=== PATIENT | female | born 1965 | race Two or more races ===

== ENCOUNTER 2021-08-16 09:01 | Inpatient (IN) | payer OTHER ==
[~2021-08-16] VITALS: Ht 165.1 cm; Wt 75.1 kg
[2021-08-16] MEDS ORDERED: MORPHINE SULFATE 4 MG/ML SYR/VIAL IV ONE (09:30)
[2021-08-16] MEDS ORDERED: ONDANSETRON HCL 4 MG/2 ML VIAL IV ONE (09:30)
[2021-08-16 10:26] LABS: Albumin 3.2 g/dL (3.4-5.0); Anion Gap 9 (5-15); Blood Urea Nitrogen 63 mg/dL (7-18); Calcium 6.3 mg/dL (8.5-10.1); Carbon Dioxide 19 mmol/L (21-32); Chloride 106 mmol/L (98-107); Glucose 91 mg/dL (74-106); Magnesium 3.4 mg/dL (1.6-2.6); Sodium 134 mmol/L (136-145)
[2021-08-16 10:30] LABS: Alanine Aminotransferase 18 U/L (13-56); Alkaline Phosphatase 299 U/L (45-117); Aspartate Aminotransferase 22 U/L (15-37); Bilirubin, Total 0.3 mg/dL (0.2-1.0); GFR African American 6 mL/min; GFR Non-African American 5 mL/min; Total Protein 7.2 g/dL (6.4-8.2)
[2021-08-16 10:37] LABS: Basophils # (auto) 0 10 ^3/uL (0-0.2); Basophils % (auto) 0.6 % (0.0-2.0); Eosinophils # (auto) 0 10 ^3/uL (0-0.8); Eosinophils % (auto) 0.6 % (0.0-7.0); Hematocrit 31.2 % (36.0-46.0); Hemoglobin 10.5 g/dL (12.2-16.2); Lymphocytes # (auto) 0.6 10 ^3/uL (0.4-5.4); Lymphocytes % (auto) 8.3 % (10.0-50.0); Mean Corpuscular Hemoglobin 33.9 pg (28.0-32.0); Mean Corpuscular Hgb Conc. 33.6 g/dL (32.0-36.0); Mean Corpuscular Volume 100.9 fL (80.0-100.0); Monocytes # (auto) 0.5 10 ^3/uL (0-1.3); Monocytes % (auto) 7.4 % (0.0-12.0); Neutrophils # (auto) 5.9 10 ^3/uL (1.6-8.6); Neutrophils % (auto) 83.1 % (37.0-80.0); Red Cell Distribution Width 12.4 % (11.8-14.3); White Blood Cell 7.1 10^3/uL (4.4-10.8)
[2021-08-16 11:02] LABS: Potassium 6.8 mmol/L (3.5-5.1)
[2021-08-16] MEDS ORDERED: SODIUM BICARBONATE 8.4% INJ 50ML SYRINGE IV ONE (12:45)
[2021-08-16] MEDS ORDERED: DEXTROSE (50%) 50ML SYRG IV ONE (12:45)
[2021-08-16] MEDS ORDERED: InsuLIN REG 1unit/0.01ml Soln (100units/ml) IV ONE (12:45)
[2021-08-16] MEDS ORDERED: CALCIUM GLUC 1,000mg/50ml-NS 50 ML IV ONE (12:45)
[2021-08-16] MEDS ORDERED: FUROSEMIDE 20 MG/2 ML VIAL IV ONE (12:45)
[2021-08-16] MEDS ORDERED: SODIUM ZIRCONIUM CYCL 10 GM PAK PO ONE (12:45)
[2021-08-16] MEDS ORDERED: ALBUTEROL SULF 2.5 MG/0.5ML(0.5%) NEB SOLN NEB ONE (12:45)
[2021-08-16] MEDS ORDERED: NITROGLYCERIN 0.4 MG SL TAB SL PRN (16:45)
[2021-08-16] MEDS ORDERED: MORPHINE SULFATE INJECTION 2 MG/ML SYRG IV PRN (16:45)
[2021-08-16] MEDS: HYDROcodone-ACET 5/325MG TAB PO PRN (21:30)
[2021-08-16] MEDS: ENOXAPARIN SOD 80 MG/0.8ML SYRINGE SC SCH (21:37)
[2021-08-16] MEDS ORDERED: HEPARIN SODIUM (PORCINE) 5000 UNITS/ML 1ML VIAL IV SCH (22:00)
[2021-08-16] MEDS ORDERED: HEPARIN SODIUM (PORCINE) 5000 UNITS/ML 1ML VIAL SC SCH (22:00)
[2021-08-16 22:55] VITALS: BP 128/46
[2021-08-16 23:03] LABS: Basophils # (auto) 0 10 ^3/uL (0-0.2); Basophils % (auto) 0.6 % (0.0-2.0); Eosinophils # (auto) 0 10 ^3/uL (0-0.8); Eosinophils % (auto) 0.4 % (0.0-7.0); Hematocrit 29.6 % (36.0-46.0); Hemoglobin 10.1 g/dL (12.2-16.2); Lymphocytes # (auto) 0.5 10 ^3/uL (0.4-5.4); Lymphocytes % (auto) 9.6 % (10.0-50.0); Mean Corpuscular Hemoglobin 33.9 pg (28.0-32.0); Mean Corpuscular Hgb Conc. 34.1 g/dL (32.0-36.0); Mean Corpuscular Volume 99.6 fL (80.0-100.0); Monocytes # (auto) 0.3 10 ^3/uL (0-1.3); Monocytes % (auto) 6.1 % (0.0-12.0); Neutrophils # (auto) 4.7 10 ^3/uL (1.6-8.6); Neutrophils % (auto) 83.3 % (37.0-80.0); Red Blood Cells 2.97 10^6/uL (4.0-5.20); Red Cell Distribution Width 12.3 % (11.8-14.3); White Blood Cell 5.7 10^3/uL (4.4-10.8)
[2021-08-16 23:49] LABS: Calcium 6.4 mg/dL (8.5-10.1)
[2021-08-16 23:58] LABS: Potassium 7.3 mmol/L (3.5-5.1)
[2021-08-17] VITALS (8 sets, daily range): BP systolic 117–158; BP diastolic 58–91
[2021-08-17] MEDS ORDERED: SODIUM ZIRCONIUM CYCL 10 GM PAK PO ONE (00:15)
[2021-08-17] MEDS ORDERED: DEXTROSE (50%) 50ML SYRG IV ONE (00:15)
[2021-08-17] MEDS ORDERED: FUROSEMIDE 20 MG/2 ML VIAL IV ONE (00:15)
[2021-08-17] MEDS ORDERED: InsuLIN REG 1unit/0.01ml Soln (100units/ml) IV ONE (00:15)
[2021-08-17] MEDS ORDERED: SODIUM BICARBONATE 8.4% INJ 50ML SYRINGE IV ONE (00:15)
[2021-08-17] MEDS ORDERED: ALBUTEROL SULF 2.5 MG/0.5ML(0.5%) NEB SOLN NEB ONE (00:15)
[2021-08-17] MEDS ORDERED: CALCIUM GLUC 1,000mg/50ml-NS 50 ML IV ONE (00:15)
[2021-08-17] MEDS ORDERED: DEXTROSE 50% SYRINGE 50 ML IV ONE (01:24)
[2021-08-17] MEDS ORDERED: FUROSEMIDE 20 MG/2 ML VIAL ONE (01:24)
[2021-08-17] MEDS ORDERED: SODIUM BICARBONATE 8.4% INJ 50ML SYRINGE ONE (01:28)
[2021-08-17] MEDS: HYDROcodone-ACET 5/325MG TAB PO PRN (12:26)
[2021-08-17] MEDS ORDERED: HYDROmorphone HCL 2 MG/ML VL IV PRN (14:45)
[2021-08-17] MEDS ORDERED: SODIUM CHL 0.9% 1000 ML BAG XX ONE (16:45)
[2021-08-17] MEDS: ENOXAPARIN SOD 80 MG/0.8ML SYRINGE SC SCH (22:26)
[2021-08-18 05:00] VITALS: BP 148/70
[2021-08-18 05:38] LABS: Basophils # (auto) 0 10 ^3/uL (0-0.2); Basophils % (auto) 0.7 % (0.0-2.0); Eosinophils # (auto) 0.1 10 ^3/uL (0-0.8); Hemoglobin 10.1 g/dL (12.2-16.2); Lymphocytes # (auto) 0.6 10 ^3/uL (0.4-5.4); Lymphocytes % (auto) 11.4 % (10.0-50.0); Mean Corpuscular Hgb Conc. 33.6 g/dL (32.0-36.0); Mean Corpuscular Volume 101.4 fL (80.0-100.0); Monocytes # (auto) 0.5 10 ^3/uL (0-1.3); Monocytes % (auto) 8.4 % (0.0-12.0); Neutrophils # (auto) 4.3 10 ^3/uL (1.6-8.6); Neutrophils % (auto) 77.5 % (37.0-80.0); Nucleated Red Blood Cells % 0.2 %; Red Blood Cells 2.96 10^6/uL (4.0-5.20); Red Cell Distribution Width 12.3 % (11.8-14.3); White Blood Cell 5.6 10^3/uL (4.4-10.8)
[2021-08-18 09:00] VITALS: BP 131/65
[2021-08-18] MEDS ORDERED: ASPI1TAB20 PO (10:21)
[2021-08-18 11:42] VITALS: BP 128/68
[2021-08-18] MEDS: HYDROcodone-ACET 5/325MG TAB PO PRN ×2 (11:45→17:09)
[2021-08-18 13:00] VITALS: BP 154/74
== END 2021-08-18 17:30 | disposition home health service (06) | DRG 551 ==
LOC: EDBD 09:01 → ER 09:01 → TELE-WESTW 16:44
PROVIDERS: ADMIT Internal Medicine; ATTEND Internal Medicine
PROC: 5A1D70Z Performance of Urinary Filtration, Intermittent, Less than 6 Hours Per Day (ICD-10-PCS; principal; 2021-08-17)
DX: S32.111A Minimally displaced Zone I fracture of sacrum, initial encounter for closed fracture (principal); N18.6 End stage renal disease; S52.572A Other intraarticular fracture of lower end of left radius, initial encounter for closed fracture; S32.592A Other specified fracture of left pubis, initial encounter for closed fracture; I12.0 Hypertensive chronic kidney disease with stage 5 chronic kidney disease or end stage renal disease; E87.5 Hyperkalemia; W01.0XXA Fall on same level from slipping, tripping and stumbling without subsequent striking against object, initial encounter; E11.22 Type 2 diabetes mellitus with diabetic chronic kidney disease; Z20.822 Contact with and (suspected) exposure to COVID-19; D64.9 Anemia, unspecified; G62.9 Polyneuropathy, unspecified; E78.5 Hyperlipidemia, unspecified; Z99.2 Dependence on renal dialysis; Z88.8 Allergy status to other drugs, medicaments and biological substances; Y93.89 Activity, other specified; Y92.098 Other place in other non-institutional residence as the place of occurrence of the external cause; Y99.8 Other external cause status
CPT/HCPCS: 36415; 70450; 72192; 73090; 80048; 80053; 82962; 83036; 83735; 84132; 84484; 85025; 87081; 87340; 87426; 90935; 93005; 94640; 96365; 96375; 97163; 99291; G0378; J1815; J2405

== ENCOUNTER 2022-03-07 11:29 | Observation (INO) | payer OTHER ==
[~2022-03-07] VITALS: Ht 152.4 cm; Wt 65.4 kg
[~2022-03-07 11:29] MED LIST: ASPI1TAB20 PO
[2022-03-07 14:08] LABS: Basophils # (auto) 0.1 10 ^3/uL (0-0.2); Basophils % (auto) 1.1 % (0.0-2.0); Eosinophils # (auto) 0.1 10 ^3/uL (0-0.8); Eosinophils % (auto) 1.7 % (0.0-7.0); Hematocrit 34.7 % (36.0-46.0); Hemoglobin 11.6 g/dL (12.2-16.2); Lymphocytes % (auto) 21.7 % (10.0-50.0); Mean Corpuscular Hemoglobin 33.3 pg (28.0-32.0); Mean Corpuscular Hgb Conc. 33.5 g/dL (32.0-36.0); Mean Corpuscular Volume 99.3 fL (80.0-100.0); Monocytes # (auto) 0.3 10 ^3/uL (0-1.3); Monocytes % (auto) 7.3 % (0.0-12.0); Neutrophils # (auto) 3.1 10 ^3/uL (1.6-8.6); Neutrophils % (auto) 68.2 % (37.0-80.0); Nucleated Red Blood Cells % 0.1 %; Red Cell Distribution Width 15.7 % (11.8-14.3); White Blood Cell 4.5 10^3/uL (4.4-10.8)
[2022-03-07 14:22] LABS: INR 1.05 (0.9-1.15)
[2022-03-07 14:27] LABS: Albumin 3.8 g/dL (3.4-5.0); Calcium 6.1 mg/dL (8.5-10.1)
[2022-03-07 14:31] LABS: Bilirubin, Total 0.4 mg/dL (0.2-1.0)
[2022-03-07 14:33] LABS: BUN/Creatinine Ratio 8.2; Potassium 6.5 mmol/L (3.5-5.1)
[2022-03-07] MEDS ORDERED: InsuLIN REG 1unit/0.01ml Soln (100units/ml) IV ONE (15:45)
[2022-03-07] MEDS ORDERED: CALCIUM GLUC 1,000mg/50ml-NS 50 ML IV ONE (15:45)
[2022-03-07] MEDS ORDERED: SODIUM ZIRCONIUM CYCL 10 GM PAK PO ONE ×3 (15:45→23:45)
[2022-03-07] MEDS ORDERED: DEXTROSE (50%) 50ML SYRG IV ONE ×2 (15:45→17:45)
[2022-03-07] MEDS ORDERED: FUROSEMIDE 20 MG/2 ML VIAL IV ONE (15:45)
[2022-03-07] MEDS ORDERED: ALBUTEROL SULF 2.5 MG/0.5ML(0.5%) NEB SOLN NEB ONE ×2 (15:45→23:45)
[2022-03-07] MEDS ORDERED: DEXTROSE 50% SYRINGE 50 ML IV ONE (17:30)
[2022-03-07] MEDS ORDERED: LIDOCAINE 2%HCL (LOCAL ANESTH.) INJ 10ml MDV ONE (17:37)
[2022-03-07] MEDS ORDERED: fentaNYL CITRATE 100 MCG/2 ML VL ONE (17:40)
[2022-03-07] MEDS ORDERED: MIDAZOLAM HCL 2MG/2ML 2ml VIAL (1mg/ml) ONE (17:41)
[2022-03-07] MEDS ORDERED: hydrALAZINE HCL 20 MG/ML VL ONE (18:15)
[2022-03-07] MEDS ORDERED: hydrALAZINE HCL 20 MG/ML VL IV ONE (18:15)
[2022-03-07] MEDS ORDERED: HEPARIN SODIUM (PORCINE) 5000 UNITS/ML 1ML VIAL ONE (18:20)
[2022-03-07 19:58] LABS: Albumin 3.3 g/dL (3.4-5.0); Calcium 6.2 mg/dL (8.5-10.1)
[2022-03-07 20:01] LABS: BUN/Creatinine Ratio 8.1; Bilirubin, Total 0.4 mg/dL (0.2-1.0); Total Protein 6.9 g/dL (6.4-8.2)
[2022-03-07 21:05] LABS: Potassium 6.3 mmol/L (3.5-5.1)
[2022-03-07 23:04] LABS: Albumin 3.3 g/dL (3.4-5.0)
[2022-03-07 23:08] LABS: BUN/Creatinine Ratio 8.2; Bilirubin, Total 0.4 mg/dL (0.2-1.0); Total Protein 6.8 g/dL (6.4-8.2)
[2022-03-07 23:14] LABS: Potassium 6.8 mmol/L (3.5-5.1)
[2022-03-07] MEDS ORDERED: ALBUTEROL SULF 2.5 MG/0.5ML(0.5%) NEB SOLN ONE (23:38)
[2022-03-08] MEDS ORDERED: ACETAMINOPHEN 325 MG TAB PO ONE (00:15)
[2022-03-08] MEDS ORDERED: CALCIUM GLUC 1,000mg/50ml-NS 50 ML IV ONE (00:30)
[2022-03-08] MEDS ORDERED: MORPHINE SULFATE INJ 2 MG/ml SYRG IV PRN ×2 (00:30)
[2022-03-08] MEDS ORDERED: NITROGLYCERIN 0.4 MG SL TAB SL PRN (00:30)
[2022-03-08] MEDS ORDERED: SODIUM BICARBONATE 50ML VIAL 50 ML in D5W 5% 1,000 ML IV ONE (00:30)
[2022-03-08] MEDS ORDERED: ONDANSETRON HCL 4 MG/2 ML VIAL IV PRN (00:30)
[2022-03-08] MEDS ORDERED: SODIUM BICARBONATE 8.4 % INJ 50ML VIAL IV ONE (02:45)
[2022-03-08 05:17] VITALS: BP 125/42
[2022-03-08 08:05] LABS: Basophils # (auto) 0 10 ^3/uL (0-0.2); Basophils % (auto) 0.7 % (0.0-2.0); Eosinophils # (auto) 0 10 ^3/uL (0-0.8); Eosinophils % (auto) 0.4 % (0.0-7.0); Hematocrit 27.9 % (36.0-46.0); Hemoglobin 9.5 g/dL (12.2-16.2); Lymphocytes # (auto) 0.6 10 ^3/uL (0.4-5.4); Lymphocytes % (auto) 13.1 % (10.0-50.0); Mean Corpuscular Hemoglobin 33.7 pg (28.0-32.0); Mean Corpuscular Hgb Conc. 33.9 g/dL (32.0-36.0); Mean Corpuscular Volume 99.3 fL (80.0-100.0); Monocytes # (auto) 0.3 10 ^3/uL (0-1.3); Monocytes % (auto) 7.2 % (0.0-12.0); Neutrophils # (auto) 3.5 10 ^3/uL (1.6-8.6); Neutrophils % (auto) 78.6 % (37.0-80.0); Red Blood Cells 2.81 10^6/uL (4.0-5.20); Red Cell Distribution Width 15.7 % (11.8-14.3); White Blood Cell 4.5 10^3/uL (4.4-10.8)
[2022-03-08 08:17] LABS: BUN/Creatinine Ratio 7.9
[2022-03-08 08:30] VITALS: BP 142/55
[2022-03-08 08:34] LABS: Calcium 5.8 mg/dL (8.5-10.1); Potassium 5.9 mmol/L (3.5-5.1)
[2022-03-08 12:30] VITALS: BP 146/68
[2022-03-08 16:18] LABS: Calcium 6.8 mg/dL (8.5-10.1)
[2022-03-08 16:30] VITALS: BP 160/57
[2022-03-08 16:57] VITALS: BP 146/68
== END 2022-03-08 17:35 | disposition home or self-care (01) ==
LOC: ER 11:29 → TELE-WESTW 03-08 00:22
PROVIDERS: ADMIT Hospitalist; ATTEND Hospitalist
DX: T82.818A Embolism due to vascular prosthetic devices, implants and grafts, initial encounter (principal); Z20.822 Contact with and (suspected) exposure to COVID-19; E87.5 Hyperkalemia; I12.0 Hypertensive chronic kidney disease with stage 5 chronic kidney disease or end stage renal disease; E11.22 Type 2 diabetes mellitus with diabetic chronic kidney disease; N18.6 End stage renal disease; Y83.2 Surgical operation with anastomosis, bypass or graft as the cause of abnormal reaction of the patient, or of later complication, without mention of misadventure at the time of the procedure; Z99.2 Dependence on renal dialysis; Z79.82 Long term (current) use of aspirin; Z79.899 Other long term (current) drug therapy
CPT/HCPCS: 36415; 71045; 76942; 80048; 80053; 82310; 82565; 82962; 84132; 84520; 85025; 85610; 85730; 87340; 87426; 93005; 93926; 94640; 96365; 96366; 96375; 96376; 99291; C1769; C1894; G0378; J0360; J0610; J1644; J1815; J1940; J2001; J7042; J7070; 90935; 99152; J2250